=== PATIENT | female | born 1995 | race Caucasian/White ===

== ENCOUNTER 2017-10-24 19:28 | Emergency (ER) | payer OTHER, SELFPAY ==
[2017-10-24 19:40] VITALS: BP 109/81; PULSE 74; RESP 18; TEMP 36.4; O2SAT 100
--- NOTE | 2017-10-24 21:02 | ED_ITS ---
HPI - Extremity Injury (Upper) <FARIDEH Natarajan - Last Filed: 10/24/17 22:00> General Chief Complaint: Extremity Injury, Lower Stated Complaint: LT THUMB PAIN Time Seen by Provider: 10/24/17 20:00 Source: patient Mode of arrival: ambulatory Limitations: no limitations History of Present Illness HPI narrative: Patient presents with chief complaint of right thumb pain. She states that she has an infection in her nail at the inner portion of her right thumb. She states she was cutting her nails recently think she could to short. She denies any fever, spreading redness, nausea, vomiting or diarrhea. She denies any exudate or swelling of the area. Related Data Home Medications Medication Instructions Recorded Confirmed [ CONTROL PILL] #0 10/01/12 Previous Rx's Medication Instructions Recorded sulfamethoxazole-trimethoprim 1 tab PO BID #14 tab 05/19/16 oxycodone-acetaminophen [Percocet] 1 tab PO Q4HP PRN #15 tab 05/24/16 Allergies Allergy/AdvReac Type Severity Reaction Status Date / Time No Known Drug Allergies Allergy Verified 10/24/17 19:43 Review of Systems <FARIDEH Natarajan - Last Filed: 10/24/17 22:00> Review of Systems GENERAL: See HPI HEENT: Denies sinus pain, ear pain, sore throat, difficulty swallowing, dizziness. RESPIRATORY: Denies dyspnea, cough, wheezing, hemoptysis, sputum. CARDIOVASCULAR: Denies chest pain, palpitations, orthopnea, edema, GASTROINTESTINAL: Denies nausea, vomiting, abdominal pain, diarrhea, constipation, melena. : Denies dysuria, frequency, incontinence, hematuria, urinary retention. MUSCULOSKELETAL: denies weakness, joint pain, or bony pain SKIN: See HPI NEUROLOGIC: Denies weakness, headache, numbness, change in speech, confusion, seizures, incoordination. PSYCHIATRIC: No concerning psychosocial issues. 12 point review of systems is negative except for those stated above Exam <FARIDEH Natarajan - Last Filed: 10/24/17 22:00> Narrative Exam Narrative: GENERAL: This is a well-nourished, well-developed patient, no acute distress HEAD: Atraumatic. Normocephalic. No temporal or scalp tenderness. EYES: Pupils equal round and reactive. Extraocular motions intact. No scleral icterus. No injection or drainage. ENT: Nose without bleeding, purulent drainage or septal hematoma. Throat without erythema, tonsillar hypertrophy or exudate. Uvula midline. Airway patent. NECK: Trachea midline. No JVD or lymphadenopathy. Supple, nontender, no meningeal signs. CARDIOVASCULAR: Regular rate and rhythm without murmurs, gallops, or rubs. RESPIRATORY: Clear to auscultation. Breath sounds equal bilaterally. No wheezes , rales, or rhonchi. GASTROINTESTINAL: Abdomen soft, non-tender, nondistended. No hepato-splenomegaly , or palpable masses. No guarding. NEURO: AOx3. SKIN: Very slight erythema at lateral edge of left thumbnail. No swelling, no palpable abscess, no exudate. paronchyia noted. Capillary refill intact left thumb. Full range of motion left thumb. Initial Vital Signs Initial Vital Signs: Vital Signs Temperature 97.5 F L 10/24/17 19:40 Pulse Rate 74 10/24/17 19:40 Respiratory Rate 18 10/24/17 19:40 Blood Pressure 109/81 H 10/24/17 19:40 Pulse Oximetry 100 10/24/17 19:40 <Debby Williamson DO - Last Filed: 10/25/17 01:26> Initial Vital Signs Initial Vital Signs: Vital Signs Temperature 97.5 F L 10/24/17 19:40 Pulse Rate 74 10/24/17 19:40 Respiratory Rate 18 10/24/17 19:40 Blood Pressure 109/81 H 10/24/17 19:40 Pulse Oximetry 100 10/24/17 19:40 Course <FARIDEH Natarajan - Last Filed: 10/24/17 22:00> Hospital Course: Patient presented with chief complaint of left thumb pain. Paronchyia noted. Patient does not have any signs or symptoms of infection right now. Vital signs remained stable. Discussed at length with patient care of thumb including warm soaks. Monitoring for signs and symptoms of infection including redness, swelling, discharge. Vital Signs - 8 hr 10/24/17 19:40 Temperature 97.5 F L Pulse Rate 74 Respiratory Rate 18 Blood Pressure 109/81 H Pulse Oximetry 100 <Debby Williamson DO - Last Filed: 10/25/17 01:26> Vital Signs - 8 hr 10/24/17 19:40 Temperature 97.5 F L Pulse Rate 74 Respiratory Rate 18 Blood Pressure 109/81 H Pulse Oximetry 100 MDM - Extremity Injury (Upper) <KARINA NatarajanBC - Last Filed: 10/24/17 22:00> MDM Narrative Medical decision making narrative: Patient's exam indicates very slight Paronychia with no signs or symptoms of infection requiring drainage or antibiotics. Discussed at length with patient warm soaks with Epsom salts as well as monitoring for signs and symptoms of infection including extending erythema, swelling, fever. Patient states understanding of discharge instructions and has no questions or concerns this time. Discharge Plan Departure Patient Disposition: Home, Self-Care Clinical Impression: Paronychia Discharge Date/Time: 10/24/17 21:07 Interventions: ED Discharge Assessment Last Done: 10/24/17 21:06 Instructions: DI for Paronychia Activity Restrictions/Additional Instructions: I suggest warm water soaks several times a day for your thumb. Monitor for signs and symptoms of infection including redness, discharge or swelling from the site. Follow up with your primary care if you need to or come back to the emergency department if necessary. Prescriptions: No Action [ CONTROL PILL] Qty: 0 RF: 0 sulfamethoxazole-trimethoprim 800 MG/160 MG tablet 1 tab PO BID Qty: 14 RF: 0 oxycodone-acetaminophen [Percocet] 5 MG/325 MG tablet 1 tab PO Q4HP PRNQty: 15 RF: 0 <Debby Williamson DO - Last Filed: 10/25/17 01:26> Cosign ED Attending Shira Attestation: I was immediately available in the department for consultation. Documentation has been reviewed. I agree with assessment and plan.
== END 2017-10-24 21:07 | disposition home or self-care (01) ==
PROVIDERS: Emergency Provider Nurse Practitioner Family
DX: L03.012 Cellulitis of left finger (principal)
CPT/HCPCS: 99282

== ENCOUNTER → 2021-03-14 12:02 | Outpatient (CLI) | payer OTHER, SELFPAY ==
[2021-03-14 13:02] LABS: Add Manual Diff / Slide Review NO; Basophils Absolute Auto 0 /uL (0-100); Basophils Percent Auto 0.2 % (0-2); Eosinophils Absolute Auto 100 /uL (0-450); Eosinophils Percent Auto 0.9 % (2-4); Hematocrit 35.9 % (36-46); Hemoglobin 12.1 g/dL (12.0-16.0); Lymphocytes Absolute Auto 2100 /uL (1100-4500); Lymphocytes Percent Auto 16.6 % (25-40); Mean Corpuscular HGB Conc 33.6 % (30-36); Mean Corpuscular Hemoglobin 27.3 PG (26-34); Mean Corpuscular Volume 81.2 fL (80-100); Monocytes Absolute Auto 900 /uL (0-900); Monocytes Percent Auto 7.3 % (3-14); Neutrophils Absolute Auto 9600 /uL (1500-7000); Platelet Count 284 X10^3/uL (150-400); Red Blood Cell Count 4.42 X10^6/uL (4.0-5.2); Red Cell Distribution Width 14.1 % (11.6-14.8); White Blood Cell Count 12.8 X10^3/uL (4.5-11.0)
[2021-03-14 19:27] LABS: Appearance Urine UA CLOUDY; Bilirubin Urine UA NEGATIVE (NEGATIVE); Color Urine UA YELLOW; Glucose Urine UA NEGATIVE (Negative); Ketones Urine UA NEGATIVE (NEGATIVE); Leukocyte Esterase Urine UA TRACE (NEGATIVE); Nitrite Urine UA NEGATIVE (Negative); Occult Blood Urine UA TRACE-LYSED (Negative); Protein Urine UA NEGATIVE (Negative); Specific Gravity Urine UA 1.025 (1.000-1.035); Urobilinogen Urine UA 0.2 E.U./dL (0.2)
[2021-03-14 19:42] LABS: RBC Urine 0-1/HPF (0-5/HPF); Squamous Epithelial Cell Urine 0-1 /HPF (0-5/HPF); WBC Urine 0-1/HPF (0-5/HPF)
[2021-03-14 19:43] LABS: Bacteria Urine None Seen; Culture Indicated Urine Cult Not Indicated
[2021-03-14 20:57] LABS: Urine N gonorrhoeae NOT DETECTED
[2021-03-14 21:07] LABS: Urine Chlamydia NOT DETECTED
[2021-03-15 06:08] LABS: RPR Screen Non Reactive (Non Reactive)
[2021-03-15 12:24] LABS: Varicella IgG Antibody 3770 index (Immune >165)
[2021-03-15 17:11] LABS: Hepatitis B Surface Antigen NEGATIVE s/c (NEGATIVE)
[2021-03-15 17:20] LABS: HIV 1 & 2 Ab/Ag 4th Gen Combo NEGATIVE (NEGATIVE); Hep C Virus Ab w/Reflex Quant NEGATIVE s/c (NEGATIVE)
== END ==
PROVIDERS: Referring Provider Specialist; Visit Provider Specialist
DX: Z34.81 Encounter for supervision of other normal pregnancy, first trimester (principal); Z3A.09 9 weeks gestation of pregnancy
CPT/HCPCS: 36415; 80055; 81003; 81015; 86787; 86803; 86850; 86900; 86901; 87086; 87389; 87491; 87591

== ENCOUNTER → 2021-05-11 11:52 | Outpatient (CLI) | payer OTHER, SELFPAY ==
[2021-05-15 20:54] LABS: AFP, Serum 35.9 ng/mL (.); Estriol, Free 1.46 ng/mL (.); Inhibin A, Dimeric 129.84 pg/mL (.); Inhibin A, MoM 0.77 (.); Maternal Ethnicity Caucasian (.); Maternal Weight 132 lbs (.); Number of Fetuses No (.); OSBR Risk 1 IN 10000 (.); Results Report (.); Test Results *Screen Negative* (.); hCG, MoM 0.83 (.); hCG, Serum 28476 mIU/mL (.)
== END ==
PROVIDERS: Referring Provider Specialist; Visit Provider Specialist
DX: Z34.82 Encounter for supervision of other normal pregnancy, second trimester (principal); Z3A.17 17 weeks gestation of pregnancy
CPT/HCPCS: 36415; 82105; 82677; 84702; 86336

== ENCOUNTER → 2021-06-05 12:13 | Outpatient (CLI) | payer OTHER, SELFPAY ==
--- NOTE | 2021-06-05 12:13 | DI.US.S_ITS ---
PROCEDURE: US OB >= 14 WEEKS FETUS INDICATIONS: 20 wk anatomy OUTSIDE/PRIOR DATING DATA: Last menstrual period (LMP): 01/09/2021 LMP-based estimated date of delivery (LEN): 10/16/2021. First dating scan (date and location): 03/14/2021. Estimated date of delivery (LEN) from first dating scan: 10/18/2021. The calculations are made using the ultrasound LEN of 10/18/2021. TECHNIQUE: Real-time scanning was performed of the fetus, with image documentation and biometric measurements. COMPARISON: [facility], , US OB >= 14 WEEKS FETUS, 05/11/2021, 11:38. FINDINGS: General: A single living intrauterine gestation is present. Presentation: Variable. Placenta: Placental position is anterior , without previa. Amniotic fluid index: 13.2 cm, normal range is 5-24 cm. heart rate: 150 beats per minute. Maternal cervical canal: 4.0 cm long. Normal lower limit is 2.5 cm. biometrics: Biparietal diameter: 20 weeks 6 days Head circumference: 20 weeks 5 days Abdominal circumference: 22 weeks 2 days Femur length: 20 weeks 5 days Clinically estimated gestational age: 20 weeks 5 days Composite gestational age from present scan: 21 weeks 1 day Estimated weight and percentile: 426 g; 84th percentile Anatomic survey: Neuro: Ventricles are non-dilated at less than 10 mm. Cisterna magna is normal at 3-11 mm. Cerebellum is normal in size and morphology. Nuchal skin fold: Normal at less than 6 mm between 14-21 weeks gestational age. Face: Nose and lips, facial profile are normal. Spine: No evidence for spina bifida. Heart: 4-chambered heart is present, with normal ventricular outflow tracts. Diaphragm: Diaphragm is intact. Stomach: Left-sided stomach is present. Kidneys: No hydronephrosis. Normal is less than 5 mm in 2nd trimester, less than 7 mm in 3rd trimester. Cord: 3-vessel cord has orthotopic insertion. Bladder: Normal in size. Extremities: All 4 extremities identified. IMPRESSION: 1. Normal interval growth. 2. Normal anatomic survey. We strive to produce accurate, complete, and clear reports of imaging services. To assist us in improving patient care, this report was composed using standard report templates and voice recognition software. Therefore, it may contain abnormal punctuation, insertions and/or omissions. Occasional wrong-word or sound-alike substitutions may occur. Though we review the report and make efforts to correct it, we do recommend that the report be read carefully in proper context to recognize any text inaccuracies. Dictated by: Camilo COWAN Interpreted: Alessandro Powell MD on 06/05/2021 at 13:16 Transcribed by: MICHELLE on 06/05/2021 at 13:17 Approved by: Alessandro Powell M.D. on 06/05/2021 at 17:27
== END ==
PROVIDERS: Referring Provider Specialist; Visit Provider Specialist
DX: Z34.82 Encounter for supervision of other normal pregnancy, second trimester (principal); Z3A.20 20 weeks gestation of pregnancy
CPT/HCPCS: 76811

== ENCOUNTER → 2021-07-05 09:59 | Outpatient (CLI) | payer OTHER, SELFPAY ==
[2021-07-05 12:03] LABS: Hemoglobin 11.2 g/dL (12.0-16.0)
[2021-07-05 13:12] LABS: GTT (PREG) 1 Hour PP 50gm Dose 106 mg/dL (76-139)
== END ==
PROVIDERS: Referring Provider Specialist; Visit Provider Specialist
DX: Z34.82 Encounter for supervision of other normal pregnancy, second trimester (principal)
CPT/HCPCS: 36415; 82950; 85014; 85018

== ENCOUNTER → 2021-09-21 10:09 | Outpatient (CLI) | payer OTHER, SELFPAY ==
[2021-09-22 07:45] LABS: Strep Grp B PCR NEG for Grp B Strep
== END ==
PROVIDERS: Visit Provider Specialist
DX: Z34.83 Encounter for supervision of other normal pregnancy, third trimester (principal); Z3A.36 36 weeks gestation of pregnancy
CPT/HCPCS: 87653

== ENCOUNTER 2021-10-02 07:14 | Outpatient (CLI) | payer OTHER, SELFPAY ==
--- NOTE | 2021-10-02 07:47 | PM.PROC.1 ---
Procedures Date/Time Date of procedure: 10/02/21 Time of procedure: 07:48 General Procedure description: External cephalic version Patient is a 2 para 1 EDC 10/16/2021 at 38 weeks gestation found to be breech presentation on routine exam and is scheduled for external cephalic version. Fetus was confirmed to be breech presentation. Anterior placenta with good amniotic fluid volume. NST performed and was reactive baseline 130. Consent form for external version was reviewed with the patient. Risk of needing emergency due to decrease in heartbeat, abruption, rupture membranes, regular contractions. Patient is aware that we will schedule if fetus does not turn. Consent form signed. Patient was given terbutaline 0.25 mg subQ. Mineral oil was placed on the abdomen in the patient placed flat. Attempt to rotate the baby x1 was unsuccessful. Patient did not want to have any further attempts. She was monitored for 1 hour. No contractions, NST reactive. Patient is to call for increasing pain, bleeding, contractions, rupture membranes. Patient will be scheduled for primary section.
[2021-10-02] MEDS: TERBUTALINE 1 MG/ML VIAL 0.25 MG SUBCUT (08:07)
== END 2021-10-02 09:10 | disposition home or self-care (01) ==
LOC: LABOR 08:02 → OB 10-03 06:50
PROVIDERS: Referring Provider Specialist; Visit Provider Specialist
DX: O32.1XX0 Maternal care for breech presentation, not applicable or unspecified (principal); Z3A.38 38 weeks gestation of pregnancy
CPT/HCPCS: 59025; 59412; 76815; 96372; G0378; G0379

== ENCOUNTER 2021-10-13 07:47 | Inpatient (IN) | payer OTHER, SELFPAY ==
--- NOTE | 2021-10-13 | PATH_ITS ---
[facility] Accession Number: [id number] No. of containers..01 Tissue . 01 Material submitted: . fallopian tube - LEFT FALLOPIAN TUBE . 01 Diagnosis: Left Fallopian Tube, Salpingectomy: Fallopian tube with four benign paratubal cysts (2-6 mm in greatest dimension); complete cross-sections, negative for atypia or malignancy. [facility] 10/17/2021 1333 Local . 01 Electronically signed: . Sulma Maldonado MD, Pathologist NPI- [id number] . 01 Gross description: . Received in a container of formalin, labeled left fallopian tube, is a 10 cm in length fallopian tube. Its diameter ranges from 0.5 cm at the infundibulum to 3.5 cm at the fimbriated end. The serosa is dark red, congested, smooth, and glistening. Four paratubal cysts are identified towards the fimbriated end averaging 0.6 cm. The cysts have smooth linings and contain clear watery fluid. The fallopian tube is sectioned and has a patent congested lumen on cut surfaces. Engineering Psychologist sections are submitted as follows: A1-A2: Entire fimbriated end. A3: Cross-sections of fallopian tube with paratubal cyst. ([id number]) /[facility] 10/14/2021 1436 Local . 01 Pathologist provided ICD-10: O32.1XX0 . 01 CPT . 219362 Specimen Comment: A courtesy copy of this report has been sent to [phone] Performed at: 01 [facility] [address] [place] [address] [address], [place], [place] [id number] MD Rafiq Singh MD Phone: [phone]
--- NOTE | 2021-10-13 08:12 | PM.PREOP ---
Pre-operative Note COVID-19 COVID-19 status: Result pending Result date/Date tested (Pos, Neg/Pending): 10/13/21 Criteria for continued procedure: Delay expected to result in less-positive ultimate med/surg outcome Interval Note History & Physical reviewed/Exam performed by Physician: Yes Changes to H&P: No
[2021-10-13] MEDS: LACTATED RINGERS 1,000 ML 100 ML IV ×3 (08:33→12:22)
--- NOTE | 2021-10-13 08:48 | P.HPOB_ITS ---
OB HPI Date/Time Date of admission: 10/13/21 Date Patient Seen: 10/13/21 Time Patient Seen: 08:00 History of Present Condition Chief complaint: PRIMARY : 2 Para: 1 Estimated Date of Delivery: 10/16/21 Estimated Gestational Age (weeks): 39 Narrative: Radha Coelho is a 26 year old female admitted for primary section for breech presentation at term Indications Operative indications ( section): breech presentation History of Present care: good care, initiated at week # (9), number of visits (13) and pounds weight gain (68) Dating criteria: LMP confirmed by 1st trimester US Ultrasounds: normal mid trimester US Obstetrical complications: none Medical complications: none Preadmission Labs Blood type: O (+) positive -: Antibody screen: negative, GBS status: negative, HBsAG: negative, HIV: negative and RPR/VDLR: negative -: Chlamydia screen: not detected and Gonorrhea screen: not detected -: Rubella: immune and Varicella: immune HCAB: negative Quad screen: Normal 1 hr GTT: 106 Prior (ies) History: 07/04/2015 40 week gestation 7 lb 11 oz male Evaluation Evaluation Baseline heart rate: 140 Variability: Moderate (11-25) monitor accelerations: Present Monitor Decelerations: Absent Contraction Frequency (minutes): 3 Uterine Contraction Intensity: Mild Category of Tracing: Reactive Status: Category l PFSH Medical History (Updated 09/28/21 @ 12:02 by Taiwo Sanabria MD) Acid reflux (~2016) Crohn's colitis (~2016) Left wrist fracture (~1998) Rupture, ovary (~2004) Surgical History (Updated 03/09/21 @ 10:26 by Ellen Ledezma RN) [place] teeth extracted (~2016) Family History (Updated 03/09/21 @ 10:31 by Ellen Ledezma RN) Mother No problems noted. Father Family estrangement Grandmother IBS (irritable bowel syndrome) Hypertension Grandfather Family estrangement Grandmother Family estrangement Grandfather Family estrangement Social History marital status: number of children: 1 household members: spouse and children lives independently: Yes caregiver/support person: No housing: condominium pets and animals: Yes (1 dog: safe, was good with her son.) education level: vocational ([employer].) occupational status: unemployed ([employer]) current occupational exposures/hazards: No special parveen needs: No seatbelt use: always do you feel safe at home: Yes Smoking Status: Never smoker second hand exposure: No alcohol intake: never (Causes colitis, does not drink.) substance use type: does not use during the past year weight has: remained stable well-balanced diet: daily or most days (lots of protein but has lots of dietary restrictions due to Crohns.) daily servings fruits/ve-4 caffeine: No eating out: rarely or never Type(s) of exercise: normal ROM and activity (Very active with her son, soccer, active play) frequency: daily Meds Home Medications and Allergies Home Medications Medication Instructions Recorded Confirmed Type prenat.vits,sangeeta,ktj-icsp-fmtbj 1 tab PO DAILY 02/15/21 08/17/21 History vedolizumab 300 mg intravenous 300 mg IV Q8W 02/15/21 08/17/21 History solution (Entyvio) Allergies Allergy/AdvReac Type Severity Reaction Status Date / Time No Known Drug Allergies Allergy Verified 03/09/21 10:07 Review of Systems Review of Systems Narrative: No headaches, scotomata, epigastric pain. No contractions. No leakage of fluid. Good movement. OB Exam Narrative Exam Narrative: Blood pressure 129/70, pulse 91, temperature 98.4? HEENT exam within normal limits. Lungs are clear to auscultation percussion. Heart is regular rate and rhythm no S3-S4 murmurs. Abdomen is gravid. Ultrasound confirms fetus is still in breech presentation. Extremities without edema and nontender. Objective Labs Result Diagrams: 10/13/21 08:25 Assessment and Plan Assessment and Plan Assessment and Plan narrative: 39 week gestation with breech presentation for primary low-transverse section Time Spent with Patient Total time spent with greater than 50% in coordination of care (as documented) at patient's floor/unit and/or counseling patient:: less than 15 minutes
[2021-10-13 09:01] LABS: Add Manual Diff / Slide Review NO; Basophils Absolute Auto 0 /uL (0-100); Basophils Percent Auto 0.2 % (0-2); Eosinophils Absolute Auto 100 /uL (0-450); Eosinophils Percent Auto 1.1 % (2-4); Hematocrit 35.7 % (36-46); Hemoglobin 12.1 g/dL (12.0-16.0); Lymphocytes Absolute Auto 2200 /uL (1100-4500); Lymphocytes Percent Auto 19.1 % (25-40); Mean Corpuscular HGB Conc 33.9 % (30-36); Mean Corpuscular Volume 82.7 fL (80-100); Monocytes Absolute Auto 1100 /uL (0-900); Monocytes Percent Auto 9.2 % (3-14); Neutrophils Absolute Auto 8200 /uL (1500-7000); Neutrophils Percent Auto 70.4 % (50-75); Platelet Count 207 X10^3/uL (150-400); Red Blood Cell Count 4.32 X10^6/uL (4.0-5.2); Red Cell Distribution Width 15.7 % (11.6-14.8); White Blood Cell Count 11.7 X10^3/uL (4.5-11.0)
[2021-10-13 09:14] LABS: COVID19 -Nasal RAPID Negative (Negative)
[2021-10-13] MEDS: CEFAZOLIN 2 GM/20 ML SYRINGE IV (09:30)
--- NOTE | 2021-10-13 10:04 | SUR.OPER ---
Supine on Padded OR bed, head on pillow, safety belt at thigh, arms secured on padded arm boards at <90 degrees abduction. Bump under right buttock. Legs uncrossed with pillow under knees, gel pad to heels, tape over blanket to lower legs.
--- NOTE | 2021-10-13 10:04 | SUR.OPER ---
Viable baby boy delivered at 0941. Placenta delivered. Cord blood tubes X2 and placenta given to L&D RN.
--- NOTE | 2021-10-13 10:24 | P.OP_ITS ---
Operative Date/Time/Diagnoses Date of procedure: 10/13/21 Time of procedure: 10:24 Pre-op diagnosis: 39 week gestation with breech presentation for primary section, undesired fertility requesting salpingectomy Post-op diagnosis: same Procedure & Clinicians Procedure: Primary low-transverse section with left salpingectomy Same procedure as scheduled: Yes Indications: 39 week gestation with breech presentation and desire for sterilization with a history of right salpingo oophorectomy Surgeon: Nan Anand Click Yes if Unassisted: No Sales And Operations Trainee: Leonie Blake Anesthesia Type: Spinal Operative Notes Findings: Breech presentation male infant weighing 8 lb 1 oz. Apgars 9 and 9. Normal uterus, status post right salpingo oophorectomy normal left tube and ovary. Closure Type: primary Specimen(s): tubes/segments of tubes (Left fallopian tube) Intraoperative meds administered: Duramorph and Pitocin Applied: Catheter (Elkins) Estimated Blood Loss (mL): 500 Blood products transfused: none Procedure in detail: The patient was brought to the operating room where she underwent a spinal for anesthesia. She was placed in a supine position with a left lateral tilt. A Elkins catheter was placed. Pulsatile stockings were placed and functional throughout the case. 2 g of Ancef were given IV prior to the incision. Warming was in place. The patient was prepped and draped in usual sterile fashion. A low transverse incision was made with a scalpel and the incision was carried down to the fascial layer which was incised transversely with scissors. The assistant import manager did her side of the incision. The midline attachments are superiorly and inferiorly. Some bleeding was controlled Bovie. The rectus muscles were in the midline and the peritoneal incision was made with no damage to internal structures. The peritoneum was incised and superiorly and inferiorly. The incision was stretched with the surgeon and assistant import manager placing traction. Bladder blade was placed and a bladder flap was developed and the bladder held away from the lower uterine segment. An incision was made in the uterus with the scalpel and the incision was extended with stretching. The breech was elevated out of the abdomen followed by the legs. A wet towel was placed around the baby and the infant was rotated to deliver the shoulders and arms followed by the head and with fundal pressure by the assistant import manager the baby was delivered. The infant was bulb suctioned for clear fluid and handed off to the warmer. Cord blood was collected. The placenta de livered spontaneously with traction. The uterus was cleaned with clean laps. The uterine incision was closed in 2 layers of 0 chromic suture the first a running locking layer the second an imbricating layer. The assistant import manager was helping to expose the incision. The bladder peritoneum was repaired with 2-0 Vicryl suture. The gutters were cleaned of any remaining fluids. The left fallopian tube was grasped with a Brinklow and using the LigaSure the entire fallopian tube was removed. It was noted that the right tube and ovary were absent. Adequate hemostasis was noted. The peritoneum was closed with 2-0 Vicryl suture. The fascia layer was closed with 0 Vicryl suture with 2 stitches. The assistant import manager repairing half the incision with helping to retract and expose the incision for the other half. The incision was irrigated and adequate hemostasis noted. The incision was closed with interrupted 3-0 Vicryl sutures and then a subcuticular stitch of 4-0 Vicryl suture. Steri-Strips were placed. The uterus was massaged to remove any clots. The patient went to recovery room in good condition. Counts of instruments and sponges were correct. Dr. Blake was present throughout the case to assist with retraction, fundal pressure to deliver the infant, and suturing half the fascia. Complications: none [place] Baby 1: Infant Gender: Male Presentation: breech Details: eva Placental Delivery Description: Spontaneous Cord Vessel Description: 3 Vessels score (1 min): 8 score (5 min): 9 weight: 8 lb 1 oz Post-operative Condition: stable Disposition: other ( Center) Aftercare: routine postop
[2021-10-13 10:29] VITALS: BP 98/40; PULSE 59; RESP 16; TEMP 35.9; O2SAT 99
[2021-10-13 10:31] VITALS: BP 114/47; PULSE 63; RESP 15; O2SAT 97
[2021-10-13 10:33] VITALS: BP 106/73; PULSE 60; RESP 14; O2SAT 97
[2021-10-13 10:39] VITALS: BP 117/50; PULSE 62; RESP 16; TEMP 36.3; O2SAT 98
[2021-10-13 10:48] VITALS: BP 103/64; PULSE 62; RESP 16; O2SAT 99
[2021-10-13] MEDS: KETOROLAC 30 MG/ML VIAL IV ×2 (16:09→22:21)
[2021-10-14 03:56] VITALS: BP 113/80; PULSE 120; RESP 16; TEMP 36.7
[2021-10-14] MEDS: KETOROLAC 30 MG/ML VIAL IV (04:17)
[2021-10-14 07:18] LABS: Add Manual Diff / Slide Review NO; Basophils Absolute Auto 0 /uL (0-100); Basophils Percent Auto 0.3 % (0-2); Eosinophils Absolute Auto 100 /uL (0-450); Eosinophils Percent Auto 0.4 % (2-4); Lymphocytes Absolute Auto 2700 /uL (1100-4500); Lymphocytes Percent Auto 17.4 % (25-40); Mean Corpuscular HGB Conc 33.7 % (30-36); Mean Corpuscular Hemoglobin 27.8 PG (26-34); Mean Corpuscular Volume 82.5 fL (80-100); Monocytes Absolute Auto 1600 /uL (0-900); Monocytes Percent Auto 10.4 % (3-14); Neutrophils Absolute Auto 11000 /uL (1500-7000); Neutrophils Percent Auto 71.5 % (50-75); Platelet Count 182 X10^3/uL (150-400); Red Blood Cell Count 2.39 X10^6/uL (4.0-5.2); Red Cell Distribution Width 16.1 % (11.6-14.8); White Blood Cell Count 15.4 X10^3/uL (4.5-11.0)
[2021-10-14 07:19] LABS: Hemoglobin 6.7 g/dL (12.0-16.0)
[2021-10-14 07:20] LABS: Hematocrit 19.7 % (36-46)
--- NOTE | 2021-10-14 08:23 | P.PNOB_ITS ---
Subjective - OB Subjective Patient comments: pain well controlled, tolerating diet and flatus present baby status: doing well and nursing well [place] feeding status: exclusively breast feeding Date Patient Seen: 10/14/21 Time Patient Seen: 08:24 Interval history: Patient is ambulatory. She is urinating post removal of Elkins catheter. She has no significant pain. She has no nausea. She is passing gas. Breast- feeding is going well. Exam Vital Signs (past 8 hours): Blood pressure 106/67, pulse 105, temperature 97.8? Oxygen Delivery Method Room Air Narrative Exam Narrative: Abdomen is soft, nontender. Uterus is firm, at U, nontender. Dressing is clean, dry, intact. Mild lochia. Extremities with +1 edema and nontender. Objective Labs Result Diagrams: 10/14/21 06:55 Labs: Laboratory Results - last 24 hr 10/13/21 10/13/21 10/13/21 08:25 08:25 08:50 WBC 11.7 H RBC 4.32 Hgb 12.1 Hct 35.7 L MCV 82.7 MCH 28.0 MCHC 33.9 RDW 15.7 H Plt Count 207 Neut % (Auto) 70.4 Lymph % (Auto) 19.1 L [place] % (Auto) 9.2 Eos % (Auto) 1.1 L Baso % (Auto) 0.2 Neut # (Auto) 8200 H Lymph # (Auto) 2200 [place] # (Auto) 1100 H Eos # (Auto) 100 Baso # (Auto) 0 SARS-CoV-2 (PCR) Negative Blood Type O Positive Antibody Screen Negative 10/14/21 06:55 WBC 15.4 H RBC 2.39 L Hgb 6.7 L* Hct 19.7 L* MCV 82.5 MCH 27.8 MCHC 33.7 RDW 16.1 H Plt Count 182 Neut % (Auto) 71.5 Lymph % (Auto) 17.4 L [place] % (Auto) 10.4 Eos % (Auto) 0.4 L Baso % (Auto) 0.3 Neut # (Auto) 67452 H Lymph # (Auto) 2700 [place] # (Auto) 1600 H Eos # (Auto) 100 Baso # (Auto) 0 SARS-CoV-2 (PCR) Blood Type Antibody Screen Assessment & Plan Assessment and Plan (1) Delivery by section for breech presentation: Status: Acute (2) Acute blood loss anemia: Status: Acute Plan day: 1 plan OB: routine postop care Comments: Will monitor blood count. Patient is stable and ambulatory so no blood transfusion at this time. Routine precautions. Time Spent With Patient Time: Total time spent is greater than 50% in coordination of care (as documented) at patient's floor/unit and/or counseling patient: Time with patient: less than 15 minutes
[2021-10-14] MEDS: IRON SUCROSE 100 MG in SODIUM CHLORIDE 0.9% 100 ML 420 MG IV (10:02)
[2021-10-14] MEDS: DOCUSATE 100 MG CAPSULE 200 MG PO (10:03)
[2021-10-14] MEDS: IBUPROFEN 600 MG TABLET PO ×3 (10:04→22:39)
[2021-10-14 16:42] LABS: Hemoglobin 6.8 g/dL (12.0-16.0)
[2021-10-15] MEDS: IBUPROFEN 600 MG TABLET PO ×2 (04:32→10:24)
[2021-10-15 06:43] LABS: Mean Corpuscular HGB Conc 33.5 % (30-36); Mean Corpuscular Hemoglobin 27.8 PG (26-34); Mean Corpuscular Volume 83.1 fL (80-100); Platelet Count 183 X10^3/uL (150-400); Red Blood Cell Count 2.23 X10^6/uL (4.0-5.2); Red Cell Distribution Width 16.1 % (11.6-14.8); White Blood Cell Count 12.2 X10^3/uL (4.5-11.0)
[2021-10-15 06:45] LABS: Hemoglobin 6.2 g/dL (12.0-16.0)
[2021-10-15 06:46] LABS: Hematocrit 18.6 % (36-46)
[2021-10-15] MEDS: DOCUSATE 100 MG CAPSULE 200 MG PO (09:05)
--- NOTE | 2021-10-15 09:31 | P.DS_ITS ---
Discharge Providers Provider Date of admission: 10/13/21 07:47 Discharge Date: 10/15/21 Consults: 10/13/21 12:09 Consult to Manager Home Improvement Routine Comment: Discharge provider: Nan Anand MD Summary Hospital Course Date Patient Seen: 10/15/21 Time Patient Seen: 09:32 Diagnoses: Primary section for breech presentation with acute blood loss anemia Hospital Course: Patient underwent a primary low-transverse section for breech presentation at term on 10/13/2021. Patient did well . She did have a low hematocrit that remain stable and asymptomatic. She is ambulatory. She is tolerating a regular diet. She is passing gas. She is urinating well. She denies shortness of breath or dizziness with standing. Peripartum Data Delivery Method: Section (Primary for breech presentation) complications: other (Acute blood loss anemia) 1: Gender: Male Disposition of : home Discharge Diagnosis (1) Delivery by section for breech presentation: Status: Acute (2) Acute blood loss anemia: Status: Acute Status at Discharge Cognitive/behavioral status at discharge: oriented Functional status at discharge: independent ambulation Overall status at discharge: patient is progressing back to baseline Time Spent with Patient Time attestation: Total time spent providing and/or coordinating discharge services: Time spent: Less than 30 minutes Objective Labs Result Diagrams: 10/15/21 06:29 Labs: Laboratory Results - last 24 hr 10/14/21 10/15/21 16:24 06:29 WBC 12.2 H RBC 2.23 L Hgb 6.8 L* 6.2 L* Hct 20.0 L* 18.6 L* MCV 83.1 MCH 27.8 MCHC 33.5 RDW 16.1 H Plt Count 183 Exam Vital Signs (past 8 hours): Blood pressure 113/80, pulse high of 120 currently 100, temperature 98? Oxygen Delivery Method Room Air Narrative Exam Narrative: Patient's abdomen is soft, nontender. Dressing is clean, dry, intact. Mild lochia. Extremities decreasing edema and nontender. Brief abdominal ultrasound did not reveal any extensive intra-abdominal fluid. Patient's blood type is O positive, she is rubella immune, she received Tdap in the 3rd trimester. Discharge Plan Discharge Plan Patient Disposition: Home Provider Discharge Comment: Patient advised to call if she becomes short of breath, dizzy with standing, other concerns. Discharge orders & Medications Prescriptions: New docusate sodium 100 mg Capsule 200 mg PO DAILY Qty: 20 0RF ibuprofen 600 mg Tablet 600 mg PO Q6H PRN (Reason: Fever/Mild Pain (1-3)) Qty: 30 0RF oxycodone 5 mg Tablet 5 mg PO Q4H PRN (Reason: Pain, Moderate (4-6)) Qty: 20 0RF ferrous gluconate 324 mg (38 mg iron) tablet 324 mg PO DAILY Qty: 30 0RF Continued prenat.vits,sangeeta,fef-xeoa-cjukn Tablet 1 tab PO DAILY 0RF Entyvio 300 mg recon soln 300 mg IV Q8W 0RF Rx Instructions: administer over 30 mins Follow up/Referrals: Nan Anand MD [Physician] - 10/20/21 Diet/Activity/Treatments Diet: Regular Activity: Nothing in vagina or lifting over 20 lb for 6 weeks Skin/Wound/Dressing Care Report to your healthcare provider any signs of infection, such as:: chills, fev er and increased pain Dressing: Leave bandage on until 1 week postop appointment.
== END 2021-10-15 12:04 | disposition home or self-care (01) | DRG 784 ==
LOC: AC 11:20 → LABOR 13:34
PROVIDERS: Admitting Provider Specialist; Referring Provider Specialist; Visit Provider Specialist
PROC: 10D00Z1 Extraction of Products of Conception, Low, Open Approach (ICD-10-PCS; CPT 59514; principal; 2021-10-13 07:45)
DX: O32.1XX0 Maternal care for breech presentation, not applicable or unspecified (principal); D62 Acute posthemorrhagic anemia; O99.02 Anemia complicating childbirth; Z3A.39 39 weeks gestation of pregnancy; Z37.0 Single live birth; Z30.2 Encounter for sterilization; Z20.822 Contact with and (suspected) exposure to COVID-19; N83.8 Other noninflammatory disorders of ovary, fallopian tube and broad ligament
CPT/HCPCS: 36415; 58611; 59050; 59510; 59514; 85014; 85018; 85025; 85027; 86850; 86900; 86901; 87635; C9803; J0690; J1100; J1756; J1885; J2274; J2590

== ENCOUNTER → 2025-02-10 09:59 | Outpatient (CLI) | payer OTHER, SELFPAY ==
[2025-02-10 11:24] LABS: Follicle Stimulating Hormone 1.75 mIU/mL
[2025-02-10 11:40] LABS: Estradiol, Total 81.5 pg/mL
== END ==
PROVIDERS: Referring Provider Obstetrics & Gynecology; Visit Provider Obstetrics & Gynecology
DX: N95.1 Menopausal and female climacteric states (principal)
CPT/HCPCS: 36415; 82627; 82670; 83001; 83002; 84270; 84402; 84403